=== PATIENT | female | born 1990 | race Two or more races ===

== ENCOUNTER 2024-09-30 16:06 | Outpatient (CLI) | payer OTHER, SELFPAY ==
--- NOTE | ~2024-09-30 | US_ITS ---
EXAM: PELVIC ULTRASOUND HISTORY: Lower abd pain COMPARISON: None. FINDINGS: UTERUS: 8.8 x 3.7 x 5.2 cm. The uterus is anteverted and anteflexed. The endometrial complex measures 10.3 mm. RIGHT OVARY: The right ovary is unremarkable in echogenicity and size measuring 2.8 x 1.8 x 3.3 cm. Dopplerable flow is identified. LEFT OVARY: The left ovary is unremarkable in echogenicity and size measuring 2.4 x 1.8 x 2.0 cm Dopplerable flow is identified. No free fluid is identified within the pelvis. IMPRESSION: Unremarkable sonographic evaluation of the pelvis, as detailed above. Reviewed, dictated and finalized at location A.
== END 2024-09-30 16:07 | disposition home or self-care (01) ==
DX: R10.30 Lower abdominal pain, unspecified (principal)
CPT/HCPCS: 76856